=== PATIENT | male | born 1965 | race Hispanic/Latino ===

== ENCOUNTER 2022-08-14 15:25 | Observation (INO) | payer BC ==
[2022-08-14] MEDS ORDERED: Meclizine HCl 25 MG TAB ONE (16:22)
[2022-08-14 17:00] LABS: #Eosinphils 0.1 10x3/uL (0.0-0.5); #Monocytes 0.5 10x3/uL (0.0-1.1); #Neutrophils 3.8 10x3/uL (1.5-8.4); %Basophils 0.5 % (0.0-2.0); %Eosinophils 1.5 % (0.0-6.0); %Lymphocytes 27.2 % (18.0-47.0); %Monocytes 8.8 % (0.0-10.0); %Neutrophils 61.5 % (40.0-75.0); Hemoglobin 11.2 g/dL (13.5-17.5); Mean Corpuscular HGB CONC 33.9 g/dL (32.0-36.0); Mean Corpuscular Hemoglobin 31.7 pg (27.0-33.0); Mean Corpuscular Volume 93.5 fl (81.2-95.1); Mean Platelet Volume 9.4 fl (7.4-10.4); Platelet Count 272 10x3/uL (150-450); RBC Distribution Width 13.1 % (11.5-14.5); Red Blood Cell (RBC) Count 3.53 10x6/uL (4.32-5.72); White Blood Cell (WBC) Count 6.1 10x3/uL (3.5-10.5)
[2022-08-14 17:08] LABS: INR-International Normal Ratio 0.9; PTT 28.2 sec (22.0-33.0); Prothrombin Time 10.3 sec (9.5-12.1)
[2022-08-14 17:12] LABS: ALT (SGPT) 12 U/L (8-55); AST (SGOT) 14 U/L (5-34); Alkaline Phosphatase 68 U/L (40-110); Anion Gap 11 mmol/L (10-20); BUN (Urea Nitrogen) 13 mg/dL (8.4-25.7); Bilirubin, Total 0.3 mg/dL (0.2-1.2); Calc. Creatinine Clearance 0 mL/min (70-130); Calcium 8.6 mg/dL (7.8-10.44); Carbon Dioxide 24 mmol/L (22-29); Chloride 108 mmol/L (98-107); Estimated GFR 103; Globulin 2.3 g/dL (2.4-3.5); Glucose 92 mg/dL (70-105); Potassium 4.1 mmol/L (3.5-5.1); Protein, Total 6.3 g/dL (6.0-8.3); Sodium 139 mmol/L (136-145)
[2022-08-14 17:13] LABS: Acetaminophen Less than 10.0 mcg/mL (10.0-30.0); Alcohol Less than 10 mg/dL (Less than 10); Salicylate Less than 8.0 mg/dL (15.0-30.0)
[2022-08-14 17:42] LABS: Amphetamine Not Detected (NotDetected); Barbiturates Screen Not Detected (NotDetected); Benzodiazepine Screen Not Detected (NotDetected); Cocaine Metabolite Screen Not Detected (NotDetected); Methadone Not Detected (NotDetected); Methamphetamine Not Detected (NotDetected); Opiate Screen Not Detected (NotDetected); Oxycodone Screen Not Detected (NotDetected); Phencyclidine (PCP) Not Detected (NotDetected); THC/Cannabinoid Screen Not Detected (NotDetected); Tricyclic Screen Not Detected (NotDetected)
[2022-08-14] MEDS ORDERED: Aspirin Chewable 81 MG TAB ONE (19:42)
[2022-08-14 19:59] LABS: Troponin I Less than 0.010 ng/mL (< 0.028)
[2022-08-14] MEDS ORDERED: Multivitamins, Adult 10 ML, Thiamine HCl 100 MG, Folic Acid 1 MG in Dextrose 5 %-0.45 %... IV SCH (20:00)
[2022-08-14] MEDS ORDERED: traZODone HCl 150 MG TAB PO SCH (21:00)
[2022-08-14] MEDS: lamoTRIgine 100 MG TAB PO SCH (22:16)
[2022-08-14 22:24] VITALS: BMI 33.9
[2022-08-14 23:09] LABS: Troponin I Less than 0.010 ng/mL (< 0.028)
[2022-08-15] MEDS ORDERED: Ibuprofen 400 MG TAB PO SCH (01:00)
[2022-08-15] MEDS ORDERED: tiZANidine HCl 4 MG TAB PO SCH (01:00)
[2022-08-15] MEDS ORDERED: Pregabalin 75 MG CAP PO SCH (01:00)
[2022-08-15] MEDS: Sodium Chloride 0.9% 1,000 ML IV SCH ×3 (03:44→14:26)
[2022-08-15 05:07] LABS: #Eosinphils 0.1 10x3/uL (0.0-0.5); #Monocytes 0.5 10x3/uL (0.0-1.1); #Neutrophils 2.3 10x3/uL (1.5-8.4); %Basophils 0.4 % (0.0-2.0); %Eosinophils 2.3 % (0.0-6.0); %Lymphocytes 39.2 % (18.0-47.0); %Monocytes 9.9 % (0.0-10.0); %Neutrophils 47.8 % (40.0-75.0); Hemoglobin 10.7 g/dL (13.5-17.5); Mean Corpuscular HGB CONC 33.5 g/dL (32.0-36.0); Mean Corpuscular Hemoglobin 31.5 pg (27.0-33.0); Mean Corpuscular Volume 93.8 fl (81.2-95.1); Mean Platelet Volume 9.1 fl (7.4-10.4); Platelet Count 240 10x3/uL (150-450); RBC Distribution Width 13.1 % (11.5-14.5); White Blood Cell (WBC) Count 4.8 10x3/uL (3.5-10.5)
[2022-08-15 05:30] LABS: Anion Gap 9 mmol/L (10-20); BUN (Urea Nitrogen) 10 mg/dL (8.4-25.7); Calc. Creatinine Clearance 153 mL/min (70-130); Calcium 8.6 mg/dL (7.8-10.44); Carbon Dioxide 25 mmol/L (22-29); Chloride 110 mmol/L (98-107); Estimated GFR 107; Glucose 85 mg/dL (70-105); Magnesium 2.1 mg/dL (1.6-2.6); Potassium 3.6 mmol/L (3.5-5.1); Sodium 140 mmol/L (136-145)
[2022-08-15] MEDS: tiZANidine HCl 4 MG TAB PO SCH ×2 (08:45→14:17)
[2022-08-15] MEDS: Pregabalin 75 MG CAP PO SCH ×2 (08:46→14:16)
[2022-08-15] MEDS: metFORMIN 500 MG TAB PO SCH (08:47)
[2022-08-15] MEDS: Ibuprofen 800 MG TAB PO SCH ×2 (08:47→14:05)
[2022-08-15] MEDS: lamoTRIgine 100 MG TAB PO SCH ×2 (08:47→14:16)
[2022-08-15] MEDS ORDERED: Famotidine 20 MG TAB PO SCH (09:00)
[2022-08-15] MEDS ORDERED: LAMOTRIGINE 150 MG PO SCH (09:00)
[2022-08-15] MEDS ORDERED: TIZANIDINE HCL 4 MG PO SCH (09:00)
[2022-08-15] MEDS ORDERED: Enoxaparin Sodium 40 MG/0.4 ML SYRINGE SC SCH (09:00)
[2022-08-15 16:37] VITALS: BP 137/77; TEMP 98.5
[2022-08-15] MEDS ORDERED: Loperamide HCl 2 MG CAP PO PRN (16:52)
[2022-08-15] MEDS ORDERED: Atorvastatin Calcium 40 MG TAB PO SCH (21:00)
[2022-08-15] MEDS ORDERED: traZODone HCl 150 MG TAB PO SCH (21:00)
== END 2022-08-15 21:10 | disposition home or self-care (01) ==
LOC: CSHERS 15:25 → CSHTELE 20:37
PROVIDERS: ADMIT Family Medicine; ATTEND Nurse Practitioner Family
DX: R42 Dizziness and giddiness (principal); E11.9 Type 2 diabetes mellitus without complications; E78.5 Hyperlipidemia, unspecified; E66.9 Obesity, unspecified; F31.9 Bipolar disorder, unspecified; Z20.822 Contact with and (suspected) exposure to COVID-19; Z79.899 Other long term (current) drug therapy; Z68.33 Body mass index [BMI] 33.0-33.9, adult; Z79.84 Long term (current) use of oral hypoglycemic drugs
CPT/HCPCS: 36415; 36416; 70450; 70544; 70551; 71045; 74018; 80048; 80053; 80306; 80307; 83735; 84443; 84484; 85025; 85610; 85730; 93005; 93880; 96372; G0378; J1650; J3411; J7042; J7050; U0003; U0005